=== PATIENT | male | born 1980 | race Caucasian/White ===

== ENCOUNTER 2017-07-03 12:52 | Emergency (ER) | payer OTHER ==
[~2017-07-03] VITALS: Ht 175.3 cm; Wt 68.5 kg
[~2017-07-03 12:52] MED LIST: CIPRO 500MG TA500 MG PO; FLOMAX 0.40.4 MG/CAP PO; LORTAB 5/500 501 TAB PO; NO HOME MEDICATIONS; NORCO 325 MG-51 TAB PO; ZOFRAN 4MG T4 MG/TAB PO
[2017-07-03 12:55] VITALS: BP 138/89; TEMP 98
[2017-07-03] MEDS ORDERED: CLEOCIN HCL300 MG PO (12:59)
[2017-07-03] MEDS ORDERED: PROTONIX 40MG T40 MG PO (12:59)
[2017-07-03] MEDS ORDERED: FLEXERIL 1010 MG/TAB PO (15:03)
[2017-07-03 15:18] VITALS: PULSE 78
== END 2017-07-03 15:18 | disposition home or self-care (01) ==
LOC: COL.ER 12:52
DX: S16.1XXA Strain of muscle, fascia and tendon at neck level, initial encounter (principal); K22.70 Barrett's esophagus without dysplasia; Z87.891 Personal history of nicotine dependence; V43.52XA Car driver injured in collision with other type car in traffic accident, initial encounter